=== PATIENT | female | born 1975 | race African-American/Black ===

== ENCOUNTER 2020-07-14 16:21 | Emergency (ER) | payer OTHER ==
[~2020-07-14] VITALS: Ht 152.4 cm; Wt 81.7 kg
[~2020-07-14 16:21] MED LIST: MACROBID 100 M100 M1 PO
[2020-07-14 17:28] LABS: HEMATOCRIT 22.6 % (37.0-47.0); HEMOGLOBIN 6.6 gm/dL (12.0-15.0); MCH 17.7 pg (26.0-34.0); MCHC 29.4 g/dL (28.0-37.0); MCV 60.1 fL (80.0-100.0); PLATELET COUNT 342 thou/uL (150-400); RBC 3.76 mil/uL (4.20-5.00); RDW 19.6 % (10.5-14.5); WBC 5.4 thou/uL (4.0-11.0)
[2020-07-14 17:37] LABS: CALCIUM 8.3 mg/dL (8.5-10.1); CREATININE 0.9 mg/dL (0.6-1.0); POTASSIUM 3.6 mmol/L (3.5-5.1)
[2020-07-14 17:43] LABS: ALBUMIN 3.3 g/dL (3.4-5.0); TOTAL BILIRUBIN 0.2 mg/dL (0.2-1.0); TOTAL PROTEIN 7.5 g/dL (6.4-8.2)
[2020-07-14 18:14] LABS: ABSOLUTE NEUTROPHILS 3.2 thou/uL (1.4-8.2)
[2020-07-14 18:16] LABS: ANISOCYTOSIS 2+; MICROCYTES 2+; POLYCHROMASIA OCCASIONAL
[2020-07-14 18:17] LABS: OVALOCYTES OCCASIONAL
[2020-07-14 18:18] LABS: HYPOCHROMASIA SLIGHT; POIKILOCYTOSIS SLIGHT
[2020-07-14 18:43] LABS: URINE BILIRUBIN NEGATIVE (Negative); URINE BLOOD NEGATIVE (Negative); URINE CLARITY CLEAR; URINE COLOR YELLOW; URINE GLUCOSE-RANDOM* NEGATIVE (Negative); URINE KETONES NEGATIVE (Negative); URINE LEUKOCYTES-REFLEX NEGATIVE (Negative); URINE NITRITE-REFLEX NEGATIVE (Negative); URINE PROTEIN (DIPSTICK) TRACE (Negative); URINE SPECIFIC GRAVITY >= 1.030 (1.005-1.035); URINE UROBILINOGEN 0.2 E.U./dl (0.2-1.0)
[2020-07-14] MEDS ORDERED: BENTYL 20 MG TA20 M1 PO (22:39)
[2020-07-14] MEDS ORDERED: NORCO 5-325 TA1 EAC2 PO (22:39)
[2020-07-14 22:45] VITALS: BP 131/86
== END 2020-07-14 22:51 | disposition home or self-care (01) ==
LOC: ER 16:21
PROVIDERS: Emergency Medicine
DX: R10.9 Unspecified abdominal pain (principal); R19.7 Diarrhea, unspecified; K92.1 Melena; Z98.890 Other specified postprocedural states